=== PATIENT | female | born 1945 | race Caucasian/White ===

== ENCOUNTER → 2016-07-17 | Outpatient (CLI) | payer MEDICARE, BC ==
[~2016-07-17] MED LIST: ADULT LOW DOSE81 MG PO; ALPHAGAN-P5 ML OU; ATORVASTATIN CA40 MG PO; CALCIUM 500 +1 EAC3 PO; CALCIUM 500 +1 EAC5 PO; CRANBERRY 1680 MG PO; GLUCOPHAGE XR500 MG PO; LIPITOR DPS40 MG PO; METFORMIN HCL500 M2 PO; MICRO-K DPS10 MEQ PO; MOBIC15 MG PO; OMEGA-3 DPS1000 MG PO; OMEGA-31000 MG PO; OXY IR DPS5 MG PO; PERCOCET 5-3251 EACH PO; POLYETHYLENE GL17 GM PO; POTASSIUM CHLO10 MEQ PO; PRILOSEC DPS20 MG PO; PRILOSEC40 MG PO; SENOKOT S1 TAB PO; THERA1 EACH PO; TIMOPTIC 0.5% DP5 ML OS; TIMOPTIC XE OS; TRAMADOL HCL50 MG PO; TYLENOL DPS325 MG PO; TYLENOL325 MG PO; ULTRAM DPS50 MG PO; XARELTO10 MG PO; ZESTORETIC 20-1 EACH PO; ZESTORETIC 20/11 TAB PO; [UNRECOGNIZED DRUG - OTHER] PO
--- NOTE | 2016-07-21 11:03 | HP ---
ADMIT: 07/17/2016 RM/LOC: [facility] MR#: [id number] [facility]#: [id number] [address] [address] MARCELINORAJESH VANCE [address] [place] [address] History and Physical SEX: F AGE: 71 : 1945 DATE OF SERVICE: CHIEF COMPLAINT AND HISTORY OF PRESENT ILLNESS: This 71-year-old female is being seen for preoperative visit for a left total knee to be done by Dr. Freeman, and Dr. Freeman has previously done a right total knee two years ago. The patient has had progressive pain in the knee and decided to have surgery for this. In general, her health has been good. PAST MEDICAL HISTORY: Previous medical problems include hypertension, type 2 diabetes mellitus, osteoarthritis, GERD, hyperlipidemia, ovarian failure. PAST SURGICAL HISTORY: Include varicose veins, carpal tunnel surgery, right total knee, cataract surgery, hysterectomy, and tonsillectomy. ALLERGIES: SULFA. FAMILY HISTORY: Father had diabetes mellitus. One sister has dementia. Mother had hypertension. SOCIAL HISTORY: The patient is . 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 MEDICATIONS: Include: 1. Atorvastatin 40 mg daily. 2. Potassium chloride 10 mEq daily. 3. Metformin 500 mg daily. 4. Lisinopril/hydrochlorothiazide 20/12.5 mg daily. 5. Neurontin 100 mg t.i.d. 6. Omeprazole 40 mg daily. 7. Alicia. 8. Timolol 0.5% solution one drop left eye daily. 9. Calcium with vitamin D 600 mg one daily. 10.Vitamin C daily. 11.Vitamin E daily. REVIEW OF SYSTEMS: HEENT: The patient has a history of glaucoma and takes eyedrops. She also has yearly diabetic eye checks and has been normal. CARDIORESPIRATORY: The patient has hypertension. No chest pain, syncope, dyspnea, pneumonia, or ischemic heart disease. GI: The patient has a history of GERD, but no nausea, vomiting, constipation, bloody stools, or diarrhea. : No hematuria or dysuria. No history of diabetic nephropathy. MUSCULOSKELETAL: The patient has osteoarthritis. PHYSICAL EXAMINATION: VITAL SIGNS: Blood pressure is 126/74, temperature 97.1, pulse is 80 and regular, respirations 16. Weight 178 pounds. BMI is 32.5. GENERAL: The patient is a well-nourished, well-developed female, in no acute distress. She is alert, cooperative, and oriented x3. ADMIT: 07/17/2016 RM/LOC: [facility] MR#: [id number] [address] [place] [id number] MARCELINO, [facility] [address] [place] [address] History and Physical SEX: F AGE: 71 : 1945 HEENT: Usual. NECK: Usual, particularly no carotid bruits are heard. HEART: Usual. LUNGS: Usual. ABDOMEN: Usual. GENITALIA: Deferred. EXTREMITIES: No cyanosis, clubbing, or edema. There is no joint effusion. ASSESSMENT: 1. Osteoarthritis. 2. Hypertension. 3. Glaucoma. 4. Type 2 diabetes mellitus. 5. Hyperlipidemia. 6. Gastroesophageal reflux disease. 7. Sulfa allergy. PLAN: Discontinue the aspirin 5 days prior to surgery. I did write for Xarelto for DVT prophylaxis following the surgery, however, I would defer this final decision to Dr. Freeman if he wishes to change it. I see no contraindication to surgery, and her electrocardiogram is essentially normal. Kaushal Sorto MD/ ashleigh JOB #: [id number] CC: Scot Freeman, Attending Physician Kaushal Sorto, Family Physician
== END | disposition home or self-care (01) ==
LOC: PTH.S 10:03
DX: Z01.818 Encounter for other preprocedural examination (principal); I10 Essential (primary) hypertension; E11.9 Type 2 diabetes mellitus without complications; H40.9 Unspecified glaucoma; E78.5 Hyperlipidemia, unspecified; K21.9 Gastro-esophageal reflux disease without esophagitis; M19.90 Unspecified osteoarthritis, unspecified site; Z88.2 Allergy status to sulfonamides; Z79.2 Long term (current) use of antibiotics

== ENCOUNTER 2016-07-29 06:09 | Inpatient (IN) | payer MEDICARE, BC ==
[~2016-07-29] VITALS: Ht 157.5 cm; Wt 84.1 kg
--- NOTE | ~2016-07-29 | HP ---
ADMIT: 07/29/2016 RM/LOC: [facility] MR#: [id number] [address] [address] MARCELINO RAJESH [address] [place] [address] Pre-OP History and Physical SEX: F AGE: 71 : 1945 DATE OF SERVICE: CHIEF COMPLAINT: Left knee pain. HISTORY OF PRESENT ILLNESS: The patient is a 71-year-old female with longstanding history of left knee pain. Injections have failed to improve things, failed conservative care, now being admitted for left total knee arthroplasty. She has done well with her right knee replacement. PAST MEDICAL HISTORY: Includes diabetes and hypertension. PAST SURGICAL HISTORY: Include tubal ligation, hysterectomy, cataract extraction, tonsillectomy, carpal tunnel release. MEDICATIONS: Include: 1. Eye drops. 2. Alicia. 3. Potassium. 4. Multivitamins. 5. Omeprazole. 6. Atorvastatin. 7. Lisinopril/hydrochlorothiazide. 8. Metformin. ALLERGIES: SULFA. SOCIAL HISTORY: Denies any tobacco or alcohol use. REVIEW OF SYSTEMS: Negative. PHYSICAL EXAMINATION: GENERAL: Healthy-appearing female. MUSCULOSKELETAL: She has a varus deformity of the left knee, some crepitus, pain around the medial joint line, range of motion 5 to 110 degrees. No pain in the hip. Leg is neurovascularly intact. ADMIT: 07/29/2016 RM/LOC: [facility] MR#: [id number] [address] [address] MARCELINO RAJESH García [address] [place] [address] Pre-OP History and Physical SEX: F AGE: 71 : 1945 IMAGING: X-rays AP, lateral, PA flexion view shows advanced left knee arthritis with complete medial collapse. IMPRESSION: 1. Advanced left knee degenerative joint disease. 2. Diabetes. 3. Hypertension. PLAN: Talked about different options. Failed conservative care. She is aware of the risks, benefits, and options and agreed to proceed. She has been seen and cleared from a medical standpoint. Scot Freeman MD/ ashleigh JOB #: [id number] CC: Scot Freeman, Attending Physician Kaushal Sorto, Family Physician
[~2016-07-29 06:09] MED LIST changes: -ALPHAGAN-P5 ML OU; -ATORVASTATIN CA40 MG PO; -CALCIUM 500 +1 EAC3 PO; -GLUCOPHAGE XR500 MG PO; -MICRO-K DPS10 MEQ PO; -OMEGA-3 DPS1000 MG PO; -OXY IR DPS5 MG PO; -POLYETHYLENE GL17 GM PO; -PRILOSEC DPS20 MG PO; -THERA1 EACH PO; -TIMOPTIC 0.5% DP5 ML OS; -TYLENOL DPS325 MG PO; -ULTRAM DPS50 MG PO; -ZESTORETIC 20/11 TAB PO
--- NOTE | 2016-07-30 16:20 | OR ---
ADMIT: 07/29/2016 RM/LOC: [address] [facility] MR#: [id number] [facility]#: [id number] [address] [address] MARCELINORAJESH [address] [place] [address] Operative/Delivery Room Report SEX: F AGE: 71 : 1945 SURGERY DATE: 07/29/2016 SURGEON: Scot Freeman MD PREOPERATIVE DIAGNOSIS: Left knee degenerative joint disease. POSTOPERATIVE DIAGNOSIS: Left knee degenerative joint disease. PROCEDURE: Left total knee arthroplasty using intraarticular block. PROFESSOR OF PHILOSOPHY: ESTELA Atwood. COMPLICATIONS: None. ESTIMATED BLOOD LOSS: 100 mL. TOURNIQUET TIME: 39 minutes. COMPONENTS: 1. Size 5 lugged Attune femoral component. 2. Size 4 modular tibial component. 3. A 6-mm posterior stabilized insert. 4. A 35-mm oval patellar button. 5. [place] Speed Set cement. DESCRIPTION OF THE PROCEDURE: The patient was taken to the Operating Room and the correct extremity was identified. The patient received a spinal anesthetic. The left lower extremity was prepped and draped in a standard fashion. The leg was exsanguinated and tourniquet inflated. An anterior incision was made and dissection was carried through the subcutaneous tissue. A medial parapatellar arthrotomy was performed. The patella subluxed laterally. The infrapatellar fat pad was partially excised for exposure. At that point, the distal femur was opened up with a drill. We cut 10 mm off the distal femur in 5 degrees of valgus using an intramedullary guide. We then cut the tibia perpendicular to its long axis taking it flush with the affected side with an extramedullary guide. We then sized the femur to a size 5 and pinned this in appropriate external rotation aligning it with the epicondylar axis. We then made anterior posterior chamfer cuts with the 4-in-1 cutting block. We opened up the joint space and removed the remaining posterior osteophytes, meniscus, and PCL ligament. We made our box cut centralizing the femoral component. The tibia was subluxed anteriorly, fit for a size 4 modular tibial tray, punched and drilled in appropriate external rotation. We then removed the remaining tibial osteophytes. We then cut the patella perpendicular to its long axis taking it flush with the lateral facet and fit it for a 35 mm oval patellar button restoring patellar height. We then put in trial components with a 6 mm insert. At that point, we had full extension, full flexion, patella tracked centrally and no lateral release was required. ADMIT: 07/29/2016 RM/LOC: [address] [facility] MR#: [id number] [address] [address] RAJESH BENSON [address] [place] [address] Operative/Delivery Room Report SEX: F AGE: 71 : 1945 The knee was also stable to varus and valgus stress testing. All trial components were removed and all the bony surfaces were Waterpik'd clean. We then cemented the tibia, femur, and patella in a standard fashion, put in the trial 6-mm insert and held the knee in extension. Once the cement was hard, we deflated the tourniquet, obtained hemostasis, irrigated out the wound thoroughly, removed the trial insert and put in the real insert. The knee was again found to be stable with full range of motion. No Hemovac drain was used. At that point, the extensor mechanism was closed with an interrupted 0- Vicryl suture with the knee in flexion. The subcutaneous tissue was closed 2-0 Vicryl and laura were placed in the skin. Sterile dressings were then applied. The patient was taken to the Recovery Room in stable condition with no complications. Scot Freeman MD/ ashleigh JOB #: [id number] CC: Scot Freeman, Attending Physician Kaushal Sorto, Family Physician
[2016-07-31] MEDS ORDERED: MICRO-K DPS10 MEQ PO (20:54)
[2016-07-31] MEDS ORDERED: ALPHAGAN-P5 ML OU (20:54)
[2016-07-31] MEDS ORDERED: TIMOPTIC 0.5% DP5 ML OS (20:54)
[2016-07-31] MEDS ORDERED: GLUCOPHAGE XR500 MG PO (20:55)
[2016-07-31] MEDS ORDERED: ATORVASTATIN CA40 MG PO (20:55)
[2016-07-31] MEDS ORDERED: ZESTORETIC 20/11 TAB PO (20:55)
[2016-07-31] MEDS ORDERED: OMEGA-3 DPS1000 MG PO (20:56)
[2016-07-31] MEDS ORDERED: CALCIUM 500 +1 EAC3 PO (20:56)
[2016-07-31] MEDS ORDERED: PRILOSEC DPS20 MG PO (20:56)
[2016-07-31] MEDS ORDERED: MOBIC15 MG PO (20:57)
[2016-07-31] MEDS ORDERED: THERA1 EACH PO (20:57)
[2016-07-31] MEDS ORDERED: SENOKOT S1 TAB PO (20:57)
[2016-07-31] MEDS ORDERED: TYLENOL DPS325 MG PO (20:57)
[2016-07-31] MEDS ORDERED: POLYETHYLENE GL17 GM PO (20:57)
[2016-07-31] MEDS ORDERED: OXY IR DPS5 MG PO (20:58)
[2016-07-31] MEDS ORDERED: ULTRAM DPS50 MG PO ×2 (20:58)
[2016-07-31] MEDS ORDERED: XARELTO10 MG PO (20:59)
--- NOTE | 2016-08-22 07:39 | DS ---
ADMIT: 07/29/2016 RM/LOC: 518 [facility] MR#: [id number] [facility]#: [id number] [address] [address] MARCELINORAJESH VANCE [address] [place] [address] General Discharge Summary SEX: F AGE: 71 : 1945 ADMISSION DATE: 07/29/2016 DISCHARGE DATE: 07/31/2016 REASON FOR ADMISSION: Elective left total knee arthroplasty after failing conservative care. PAST SURGICAL HISTORY: Includes tubal ligation, hysterectomy, cataract extraction, tonsillectomy, and carpal tunnel release. PAST MEDICAL HISTORY: Includes hypertension, type 2 diabetes mellitus, osteoarthritis, GERD, hyperlipidemia, and ovarian failure. PREOPERATIVE DIAGNOSIS: Left knee degenerative joint disease. POSTOPERATIVE DIAGNOSIS: Left knee degenerative joint disease. PROCEDURE PERFORMED: Left total knee arthroplasty. Using intra-articular block. SURGEON: Scot Freeman MD [employer] OPERATOR: Dyana Yee PA-C COMPLICATIONS: None. ESTIMATED BLOOD LOSS: 100 mL. ANESTHESIA: Spinal. HOSPITAL COURSE: The patient was admitted on 07/29/2016, for elective left total knee arthroplasty done by Dr. Freeman without any complications. The patient tolerated the procedure well. Postoperatively, the patient did complain of bilateral calf pain; however, Homans sign was negative bilaterally, and there is no calf swelling noted. On postoperative day #2, she was still sore, but the pain was improving. She was doing well with physical therapy and was cleared by primary care to go home. She did as expected suffer from acute blood loss anemia. Her hemoglobin dropped to 10.6 on 07/31/2016, but she remained hemodynamically stable and did not require blood transfusion. By postoperative day #2, she was safe, stable, and ready for discharge home with plans for outpatient physical therapy. DISCHARGE MEDICATIONS: 1. Atenolol 0.5% one drop left eye every day for glaucoma. 2. Alphagan P 0.1% one drop both eyes twice daily for glaucoma. 3. Potassium chloride 10 mEq in the evening. 4. Atorvastatin 40 mg in the evening. 5. Metformin ER 500 mg in the evening. 6. Lisinopril/hydrochlorothiazide 12.5 mg every day for high blood pressure. 7. Omeprazole 40 mg in the evening. ADMIT: 07/29/2016 RM/LOC: [address] [facility] MR#: [id number] [address] [address] MARCELINORAJESH [address] [place] [address] General Discharge Summary SEX: F AGE: 71 : 1945 8. Fish oil 1000 mg supplement in the evening. 9. Calcium D3, 500 mg supplement in the evening. 10.Multivitamin every day. 11.MiraLax 17 g everyday. 12.Meloxicam 15 mg everyday for pain. 13.Senokot 2 tablets twice daily as needed. 14.Acetaminophen 650 mg every 6 hours as needed for pain. 15.Tramadol 50 mg 1 to 2 tablets every 6 hours for 3 days then every 6 hours as needed for pain. 16.Oxycodone IR 5 mg 1 to 2 tablets every 4 hours as needed for breakthrough pain. 17.Xarelto 10 mg every morning for 10 more days. DISCHARGE INSTRUCTIONS: The patient was discharged home with plans for outpatient physical therapy per total knee arthroplasty protocol. Follow up in the orthopedic office in 2 weeks for wound check, in 6 weeks with x-ray. Follow up with primary care as directed. ESTELA Macdonald / Scot Freeman MD / ashleigh JOB #: [id number] CC: Scot Freeman MD, Attending Physician Kaushal Sorto MD, Family Physician
== END 2016-07-31 14:50 | disposition home or self-care (01) | DRG 470 ==
LOC: 5MS 06:09 → WOR 06:09 → 5MS 11:05
PROVIDERS: ADMIT Orthopaedic Surgery
PROC: 0SRD0J9 Replacement of Left Knee Joint with Synthetic Substitute, Cemented, Open Approach (ICD-10-PCS; principal; 2016-07-29)
DX: M17.12 Unilateral primary osteoarthritis, left knee (principal); E11.9 Type 2 diabetes mellitus without complications; D62 Acute posthemorrhagic anemia; I10 Essential (primary) hypertension; K21.9 Gastro-esophageal reflux disease without esophagitis; E78.5 Hyperlipidemia, unspecified; H40.9 Unspecified glaucoma; Z79.84 Long term (current) use of oral hypoglycemic drugs; Z96.651 Presence of right artificial knee joint